=== PATIENT | female | born 1975 | race Caucasian/White ===

== ENCOUNTER 2017-10-31 21:06 | Emergency (ER) | payer MEDICAID, OTHER ==
[2017-10-31 21:22] VITALS: BP 110/72
--- NOTE | 2017-10-31 21:30 | UC ---
Throat Pain/Nasal Ric HPI - HPI Summary HPI Summary: Pt c/o nasal congestion, cough, sinus pressure and pain X 10 days. Pt takes zyrtec D daily and flonase and no improvement since onset of symptoms. - History of Current Complaint Chief Complaint: UCGeneralIllness Stated Complaint: COUGH,CONGESTION,EARS Time Seen by Provider: 10/31/17 21:18 Hx Obtained From: Patient Hx Last Menstrual Period: 10/13/17 ?: No Onset/Duration: Gradual Onset, Lasting Days - 10, Still Present, Worse Since - onset Severity: Moderate Pain Intensity: 3 Cough: Nonproductive Associated Signs & Symptoms: Positive: Sinus Discomfort Related History: Seasonal Allergies - Epiglottits Risk Factors Epiglottis Risk Factors: Negative - Allergies/Home Medications Allergies/Adverse Reactions: Allergies Allergy/AdvReac Type Severity Reaction Status Date / Time MS Sulfa Drugs [Sulfa Drugs] Allergy Severe Numbness Verified 02/09/15 17:21 And Tingling MS Amoxicillin [Amoxicillin] Allergy Intermediate Hives Verified 02/09/15 17:21 MS Codeine [Codeine] Allergy Intermediate Unknown Verified 02/09/15 17:21 Reaction Details amoxicillin Allergy Hives Verified 10/31/17 21:25 codeine Allergy Unknown Verified 10/31/17 21:25 Reaction Details gluten Allergy GI Upset Verified 10/31/17 21:25 Sulfa (Sulfonamide Allergy Numbness Verified 10/31/17 21:25 Antibiotics) And Tingling MS Gluten Meal [Gluten Meal] AdvReac Celiac Verified 02/09/15 17:21 Disease Home Medications: Home Medications Mometasone Furoate [Nasonex] 1 spray INH DAILY 10/31/17 [History Confirmed 10/31] PMH/Surg Hx/FS Hx/Imm Hx Previously Healthy: Yes - Surgical History Surgical History: Yes Surgery Procedure, Year, and Place: breast reduction 1995, D&C 2004 & 2010 - Family History Known Family History: Positive: Cardiac Disease - Social History Occupation: Employed Full-time Lives: With Family Alcohol Use: Rare Substance Use Type: None Smoking Status (MU): Never Smoked Tobacco Have You Smoked in the Last Year: No - Immunization History Most Recent Influenza Vaccination: NOT THIS SEASON Review of Systems Constitutional: Fatigue Skin: Negative Eyes: Negative ENT: Sinus Congestion, Sinus Pain/Tenderness Respiratory: Cough Cardiovascular: Negative Gastrointestinal: Negative Genitourinary: Negative Motor: Negative Neurovascular: Negative Musculoskeletal: Negative Neurological: Headache Psychological: Negative Is Patient Immunocompromised?: No All Other Systems Reviewed And Are Negative: Yes Physical Exam Triage Information Reviewed: Yes Appearance: Ill-Appearing Vital Signs: Initial Vital Signs Temp 98.3 F 10/31/17 21:18 Pulse 57 10/31/17 21:18 Resp 16 10/31/17 21:18 BP 110/72 10/31/17 21:18 Pulse Ox 100 10/31/17 21:18 Vital Signs Reviewed: Yes Eye Exam: Normal ENT: Positive: Nasal congestion, Sinus tenderness Dental Exam: Normal Neck exam: Normal Respiratory Exam: Normal Cardiovascular Exam: Normal Musculoskeletal Exam: Normal Neurological Exam: Normal Psychological Exam: Normal Skin Exam: Normal Throat Pain/Nasal Course/Dx - Differential Dx/Diagnosis Differential Diagnosis/HQI/PQRI: Sinusitis, URI Provider Diagnoses: sinusitis Discharge - Sign-Out/Discharge Documenting (check all that apply): Discharge/Admit/Transfer - Discharge Plan Condition: Stable Disposition: HOME Prescriptions: Azithromycin TAB* [Zithromax TAB (Z-SHIKHA) 250 mg #6 tabs] 250 mg PO DAILY #4 tab predniSONE TAB* [Deltasone 20 MG TAB*] 20 mg PO DAILY #4 tab Patient Education Materials: Sinusitis (ED) Referrals: Winnie Barclay MD [Primary Care Provider] - If Needed - Billing Disposition and Condition Condition: STABLE Disposition: Home
[2017-10-31] MEDS ORDERED: Azithromycin TAB* 250 MG PO ONE (21:31)
== END 2017-10-31 21:40 | disposition home or self-care (01) ==
LOC: UCCORT 21:06
DX: J32.9 Chronic sinusitis, unspecified (principal); Z88.2 Allergy status to sulfonamides; Z88.0 Allergy status to penicillin; Z88.5 Allergy status to narcotic agent; Z91.018 Allergy to other foods
CPT/HCPCS: 99212; A9270-GY; G0463

== ENCOUNTER 2018-11-01 13:18 | Emergency (ER) | payer MEDICAID, OTHER ==
[2018-11-01 13:31] VITALS: BP 95/59
--- NOTE | 2018-11-01 14:27 | UC ---
Respiratory Complaint HPI - HPI Summary HPI Summary: 5 DAYS OF NASAL CONGESTION, SORE THROAT, COUGH, EAR PAIN AND SINUS PRESSURE. STATES HER TEETH ARE STARTING TO HURT. NO FEVER, NAUSEA/VOMITING. NO PURULENT NASAL DISCHARGE. STATES SHE RAN OUT OF HER ZYRTEC D FOR COUPLE OF DAYS WHICH IS WHEN HER SYMPTOMS STARTED TO WORSEN. - History of Current Complaint Chief Complaint: UCRespiratory Stated Complaint: CONGESTION Time Seen by Provider: 11/01/18 13:59 Hx Obtained From: Patient Hx Last Menstrual Period: 10/13/17 Onset/Duration: Gradual Onset, Lasting Days, Still Present Timing: Constant Severity Initially: Moderate Severity Currently: Moderate Pain Intensity: 4 Pain Scale Used: 0-10 Numeric Character: Cough: Nonproductive Aggravating Factors: Nothing Alleviating Factors: Nothing Associated Signs And Symptoms: Positive: URI, Nasal Congestion, Sinus Discomfort. Negative: Fever, Chills, Wheezing - Allergies/Home Medications Allergies/Adverse Reactions: Allergies Allergy/AdvReac Type Severity Reaction Status Date / Time amoxicillin Allergy Hives Verified 11/01/18 13:30 codeine Allergy Unknown Verified 11/01/18 13:30 Reaction Details gluten Allergy GI Upset Verified 11/01/18 13:30 Sulfa (Sulfonamide Allergy Numbness Verified 11/01/18 13:30 Antibiotics) And Tingling Home Medications: Home Medications Biotin 1 mg PO 11/01/18 [History] Gabapentin 400 mg PO TID 11/01/18 [History Confirmed 11/01/18] PMH/Surg Hx/FS Hx/Imm Hx - Additional Past Medical History Additional PMH: CELICA, FIBROMYALGIA, RAYNAUDS - Surgical History Surgical History: Yes Surgery Procedure, Year, and Place: breast reduction 1995, D&C 2004 & 2010 - Family History Known Family History: Positive: Cardiac Disease - Social History Alcohol Use: Rare Substance Use Type: None Smoking Status (MU): Never Smoked Tobacco Have You Smoked in the Last Year: No - Immunization History Most Recent Influenza Vaccination: NOT THIS SEASON Review of Systems All Other Systems Reviewed And Are Negative: Yes Constitutional: Positive: Negative ENT: Positive: Sore Throat, Ear Ache, Nasal Discharge, Sinus Congestion, Sinus Pain/Tenderness Respiratory: Positive: Cough Cardiovascular: Positive: Negative Gastrointestinal: Positive: Negative Neurological: Positive: Headache Physical Exam Triage Information Reviewed: Yes Appearance: Well-Appearing, No Pain Distress, Well-Nourished Vital Signs: Initial Vital Signs Temp 98.4 F 11/01/18 13:26 Pulse 67 11/01/18 13:26 Resp 18 11/01/18 13:26 BP 95/59 11/01/18 13:26 Pulse Ox 100 11/01/18 13:26 Vital Signs Reviewed: Yes Eyes: Positive: Conjunctiva Clear ENT: Positive: Hearing grossly normal, Pharynx normal, Sinus tenderness, Other - RIGHT TM NORMAL. LEFT TM MILDLY ERYTHEMATOUS. Negative: Tonsillar swelling, Tonsillar exudate Neck: Positive: Supple, Nontender, No Lymphadenopathy Respiratory Exam: Normal Cardiovascular Exam: Normal Abdomen Description: Positive: Soft Musculoskeletal: Positive: No Edema Neurological: Positive: Alert Psychological: Positive: Age Appropriate Behavior Skin: Negative: Rashes Respiratory Course/Dx - Course Course Of Treatment: PATIENT'S SYMPTOMS ARE LIKELY VIRALLY/ALLERGIC MEDIATED. LEFT EARDRUM IS ONLY VERY SLIGHTLY ERYTHEMATOUS. PATIENT STATES SHE IS PRONE TO EAR INFECTIONS AND IS CONCERNED IT WILL GET WORSE. I ADVISED WE TREAT HER ALLERGY SYMPTOMS WITH A SHORT BURST OF PREDNISONE. HAVE ADVISED HER TO CONTINUE HER ZYRTEC-D AND NASAL STEROID. AFTER A FEW DAYS IF HER SYMPTOMS ARE NOT IMPROVING SHE CAN GO AHEAD AND FILL THE PRESCRIPTION FOR THE ANTIBIOTIC. FOLLOW-UP WITH HER PCP IF SHE IS NOT IMPROVING EXPECTED. - Differential Dx/Diagnosis Provider Diagnosis: Acute sinusitis, Left otitis media Discharge - Sign-Out/Discharge Documenting (check all that apply): Patient Departure All imaging exams completed and their final reports reviewed: No Studies - Discharge Plan Condition: Stable Disposition: HOME Prescriptions: Cephalexin CAP* [Keflex 500 CAP*] 500 mg PO BID #20 cap predniSONE TAB* [Deltasone 20 MG TAB*] 40 mg PO DAILY #10 tab Patient Education Materials: Sinusitis (ED), Ear Infection (ED) Referrals: Winnie Barclay MD [Primary Care Provider] - If Needed Additional Instructions: YOUR SYMPTOMS MAY BE VIRALLY/ALLERGICALLY MEDIATED. NO INDICATION FOR ANTIBIOTICS AT PRESENT. REST, HYDRATE, OTC MEDS NEEDED. WILL TREAT WITH PREDNISONE TO HELP WITH AIRWAY INFLAMMATION. CONTINUE YOUR STEROID NASAL SPRAY FOR CONGESTION AND THE ZYRTEC D. IF YOUR SYMPTOMS DO NOT IMPROVE WITH THIS TREATMENT GO AHEAD AND FILL THE PRESCRIPTION FOR THE ANTIBIOTIC. IF YOU START THE MEDICINE TAKE IT FOR THE FULL COURSE. SEEK FOLLOW-UP IF YOU ARE NOT IMPROVING WITH THIS TREATMENT. - Billing Disposition and Condition Condition: STABLE Disposition: Home
== END 2018-11-01 14:30 | disposition home or self-care (01) ==
LOC: UCEAST 13:18
DX: J01.90 Acute sinusitis, unspecified (principal); H66.92 Otitis media, unspecified, left ear; Z88.2 Allergy status to sulfonamides; Z88.0 Allergy status to penicillin; Z88.5 Allergy status to narcotic agent
CPT/HCPCS: 99212; G0463